=== PATIENT | female | born 1970 | race Caucasian/White ===

== ENCOUNTER → 2016-08-07 | Outpatient (CLI) | payer OTHER ==
--- NOTE | 2016-08-07 16:35 | REPMRS ---
Patient History The patient states she had a clinical breast exam in 07/2016. Patient has history of basal cell skin cancer at age 38 and is nulliparous. Family history of prostate cancer in father at age 50 or over and breast cancer in maternal grandmother at age 50 or over. Benign stereotatic breast biopsy of the right breast, February 06, 2012. Taking hormonal contraceptives for 8 years. Digital Woman Screen Mammo: August 07, 2016 - Exam #: [id number] Bilateral CC and MLO view(s) were taken. Technologist: Eunice Hernandez, Technologist Prior study comparison: June 29, 2015, digital woman screen mammo performed at [facility]. March 17, 2013, digital woman screen mammo performed at [facility]. FINDINGS: The breast tissue is extremely dense which could obscure a lesion on mammography. There is no evidence of cancer on this mammogram. No significant changes when compared with prior studies. ASSESSMENT: BI-RADS/ACR category 2 mammogram. Benign finding(s). Given the extremely dense breast parenchyma and family history, MRI of the breasts is recommended. Recommendation Routine screening mammogram of both breasts in 1 year (for women over age 40). This mammogram was interpreted with the aid of an FDA-approved computer-aided dectection system. Electronically Signed By: Milo Phillips MD 08/07/16 0168
== END ==
LOC: M WHC 15:04
PROVIDERS: ATTEND Nurse Practitioner Family
DX: Z12.31 Encounter for screening mammogram for malignant neoplasm of breast (principal); Z79.3 Long term (current) use of hormonal contraceptives; R92.8 Other abnormal and inconclusive findings on diagnostic imaging of breast

== ENCOUNTER → 2016-08-07 | Outpatient (REF) | payer OTHER | LOC: M SFHCWAGY 15:38 | PROVIDERS: ATTEND Nurse Practitioner Family | DX: Z12.4 Encounter for screening for malignant neoplasm of cervix (principal) ==

== ENCOUNTER → 2016-08-20 | Outpatient (CLI) | payer OTHER ==
--- NOTE | 2016-08-20 17:07 | REP ---
PELVIC ULTRASOUND: Real-time sonographic evaluation of the pelvis was performed utilizing transabdominal and endovaginal technique. The bladder measures 7.6 x 9.9 x 6.1 cm. The uterus is enlarged measuring 10.9 x 5.3 x 8.4 cm. Endometrial thickness is angle 7 mm. Myometrium is diffusely heterogenous. There are multiple fibroids present. An anterior right sided fibroid measures 1.6 x 2.6 x 1.3 cm. A left anterior fibroid measures 1.8 x 1.4 x 2.2 cm. A left posterior fibroid measures 2.3 x 1.9 x 1.4 cm. An adjacent fibroid on the left posteriorly measures 2.3 x 1.7 x 1.9 cm. An anterior left sided fibroid peripherally measures 2.4 x 2.7 x 2.4 cm. Other smaller fibroids are present. Right ovary measures 3.0 x 2.3 x 2.9 cm. Left ovary measures 2.4 x 1.0 x 2.7 cm. There is no evidence of adnexal mass or free fluid. IMPRESSION: Multiple fibroids in the uterus.
== END ==
LOC: M WHC 14:48
PROVIDERS: ATTEND Nurse Practitioner Family
DX: N92.6 Irregular menstruation, unspecified (principal); D25.9 Leiomyoma of uterus, unspecified

== ENCOUNTER → 2017-10-10 | Outpatient (CLI) | payer OTHER | LOC: M WHC 15:06 | DX: Z12.31 Encounter for screening mammogram for malignant neoplasm of breast (principal) ==

== ENCOUNTER → 2018-10-14 | Outpatient (REF) | payer OTHER ==
[2018-10-17 14:09] LABS: HPV HYBRID CAPTURE II Negative (Negative)
== END ==
LOC: M SFHCWAGY 15:46
PROVIDERS: ATTEND Nurse Practitioner Family
DX: Z12.4 Encounter for screening for malignant neoplasm of cervix (principal)

== ENCOUNTER → 2018-10-14 | Outpatient (REF) | payer OTHER ==
[2018-10-14 22:45] LABS: CHLAMYDIA DNA AMPLIFICATION NEGATIVE (NEGATIVE); GC DNA AMPLIFICATION NEGATIVE (NEGATIVE)
== END ==
LOC: M SFHCWAGY 16:53
PROVIDERS: ATTEND Nurse Practitioner Family
DX: Z11.3 Encounter for screening for infections with a predominantly sexual mode of transmission (principal)

== ENCOUNTER → 2018-10-14 | Outpatient (CLI) | payer OTHER ==
--- NOTE | 2018-10-14 16:36 | REPMRS ---
Patient History The patient states she had a clinical breast exam in 09/2018. Patient has history of other cancer at age 38 and is nulliparous. Family history of prostate cancer at age 50 or over in father, breast cancer at age 50 or over in maternal grandmother. Benign stereotatic breast biopsy of the right breast, February 06, 2012. Taking hormonal contraceptives for 10 years. 3D TOMOSYNTHESIS WAS PERFORMED. Digital Woman Screen Mammo: October 14, 2018 - Exam #: [id number] Bilateral CC and MLO view(s) were taken. Technologist: Anabella Sylvesterologist Prior study comparison: October 10, 2017, digital woman screen mammo performed at [facility]. August 07, 2016, digital woman screen mammo performed at [facility]. FINDINGS: The breast tissue is extremely dense which could obscure a lesion on mammography. There is no evidence of cancer on this mammogram. No significant changes when compared with prior studies. Assessment: BI-RADS/ACR category 2 mammogram. Benign Findings. Recommendation Routine screening mammogram of both breasts in 1 year (for women over age 40). This mammogram was interpreted with the aid of an FDA-approved computer-aided dectection system. Electronically Signed By: Milo Phillips MD 10/14/18 [id number]
== END ==
LOC: M WHC 15:13
PROVIDERS: ATTEND Nurse Practitioner Family
DX: Z12.31 Encounter for screening mammogram for malignant neoplasm of breast (principal)

== ENCOUNTER → 2020-02-08 | Outpatient (CLI) | payer BC ==
--- NOTE | 2020-02-08 16:46 | REPMRS ---
Patient History The patient states she had a clinical breast exam in 2019. Family history of prostate cancer at age 50 or over in father, breast cancer at age 50 or over in maternal grandmother. Benign stereotatic breast biopsy of the right breast, February 06, 2012. Taking hormonal contraceptives for 10 years. 3D TOMOSYNTHESIS WAS PERFORMED. [facility] lifetime risk for breast cancer is 18.4%. VOLPARA DENSITY C. Digital Woman Screen Mammo: February 08, 2020 - Exam #: [id number] Bilateral CC and MLO view(s) were taken. Technologist: Genet Wood, Technologist Prior study comparison: October 14, 2018, bilateral digital woman screen mammo performed at [facility]. October 10, 2017, digital woman screen mammo performed at [facility]. FINDINGS: The breast tissue is heterogeneously dense. This may lower the sensitivity of mammography. There has been no change in the appearance of the mammogram from the prior studies. There is a moderate amount of residual fibroglandular tissue which is fairly symmetric. There is no interval development of dominant mass, areas of architectural distortion, or clustered microcalcification typical of malignancy. Assessment: BI-RADS/ACR category 1 mammogram. Negative Mammogram. Recommendation Routine screening mammogram in 1 year (for women over age 40). This mammogram was interpreted with the aid of an FDA-approved computer-aided dectection system. Electronically Signed By: Milo Phillips MD 02/08/20 [id number]
== END ==
LOC: M WHC 16:02
PROVIDERS: ATTEND Nurse Practitioner Family
DX: Z12.31 Encounter for screening mammogram for malignant neoplasm of breast (principal); Z86.018 Personal history of other benign neoplasm; Z79.3 Long term (current) use of hormonal contraceptives